=== PATIENT | female | born 1985 | race Caucasian/White ===

== ENCOUNTER 2017-03-16 12:32 | Emergency (ER) | payer OTHER ==
[2017-03-16 12:54] VITALS: BP 120/70; RESP 18; TEMP 98.8
--- NOTE | 2017-03-16 13:14 | ED ---
Female Urogenital HPI - General Chief complaint: Urogenital Stated complaint: Pelvic Pain Time Seen by Provider: 03/16/17 13:10 Source: patient, RN notes reviewed Mode of arrival: ambulatory - History of Present Illness Initial comments: 31-year-old female presents to the emergency department with a chief complaint of vaginal drainage. Patient states he is having a clear-like vaginal discharge. Patient does admit to a history of bacterial vaginosis. Patient states that this seems much like this. Patient denies any concern first 2 days. Patient has had some burning with urination as well. Patient states that she was concerned due to the complaints that she thought that they should be evaluated. Patient denies any recent fever, chills, shortness of breath, chest pain, back pain, abdominal pain, nausea vomiting, numbness or tingling, dysuria or hematuria, constipation or diarrhea, headaches or visual changes, or any other current symptoms. Last Menstrual Period: 03/03/17 - Related Data Previous Rx's Medication Instructions Recorded metroNIDAZOLE 0.75% VAGINAL 1 applic VAGINAL HS 7 Days 03/16/17 [Metrogel Vaginal] Allergies Allergy/AdvReac Type Severity Reaction Status Date / Time No Known Allergies Allergy Verified 03/16/17 13:41 Review of Systems ROS Statement: Those systems with pertinent positive or pertinent negative responses have been documented in the HPI. ROS Other: All systems not noted in ROS Statement are negative. Past Medical History Past Medical History: No Reported History History of Any Multi-Drug Resistant Organisms: None Reported Past Surgical History: Cholecystectomy Past Anesthesia/Blood Transfusion Reactions: No Reported Reaction Additional Past Anesthesia/Blood Transfusion Reaction / Comment(s): RECIEVED 2 UNITS OF PRBC, POST 03/5015, NO REACTION Past Psychological History: Anxiety, Depression Additional Psychological History / Comment(s): STATES SEEING A COUNSELOR, AWAITING TO SEE DR TO GET PRESCRIPTIONS Smoking Status: Current every day smoker Past Alcohol Use History: Occasional Past Drug Use History: None Reported - Past Family History Father Family Medical History: No Reported History Mother Family Medical History: No Reported History General Exam General appearance: alert, in no apparent distress Head exam: Present: atraumatic, normocephalic, normal inspection ENT exam: Present: normal exam, mucous membranes moist Neck exam: Present: normal inspection. Absent: tenderness, meningismus, lymphadenopathy Respiratory exam: Present: normal lung sounds bilaterally. Absent: respiratory distress, wheezes, rales, rhonchi, stridor Cardiovascular Exam: Present: regular rate, normal rhythm, normal heart sounds. Absent: systolic murmur, diastolic murmur, rubs, gallop, clicks External exam: Present: normal external exam Speculum exam: Present: vaginal discharge (White, thin). Absent: erythema, cervical discharge, vaginal bleeding, foreign body, tissue, laceration Neurological exam: Present: alert, oriented X3 Psychiatric exam: Present: normal affect, normal mood Skin exam: Present: warm, dry, intact, normal color. Absent: rash Course Vital Signs 03/16/17 12:50 Temperature 98.8 F Pulse Rate 95 Respiratory 18 Rate Blood Pressure 120/70 O2 Sat by Pulse 98 Oximetry Medical Decision Making - Medical Decision Making 31-year-old female presents emergency room chief complaint of vaginal discharge. Patient's exam is consistent with bacterial vaginosis. At this time we will treat for this. We did test that he has had a follow-up on these results. We discussed return parameters all patient's questions. They stated he understood and management given the plan. They will be discharged home. - Lab Data Lab Results 03/16/17 03/16/17 03/16/17 Range/Units 13:20 13:20 13:50 Urine Color Yellow Urine Appearance Cloudy H (Clear) Urine pH 7.0 (5.0-8.0) Ur Specific [place] 1.018 (1.001-1.035) Urine Protein Trace H (Negative) Urine Glucose (UA) Negative (Negative) Urine Ketones Negative (Negative) Urine Blood Negative (Negative) Urine Nitrite Negative (Negative) Urine Bilirubin Negative (Negative) Urine Urobilinogen 3.0 (<2.0) mg/dL Ur Leukocyte Esterase Negative (Negative) Urine RBC <1 (0-5) /hpf Urine WBC 1 (0-5) /hpf Ur Squamous Epith Cells 13 H (0-4) /hpf Urine Mucus Rare H (None) /hpf Urine HCG, Qual Not Detected (Not Detectd) Trichomonas Ag (Rapid) Negative (Negative) Disposition Clinical Impression: Bacterial vaginosis Disposition: HOME SELF-CARE Condition: Stable Instructions: Bacterial Vaginosis (ED) Additional Instructions: Please use medication as discussed. Please follow up with family doctor if symptoms have not improved over the next two days. Please return to the emergency room if your symptoms increase or worsen or for any other concerns. Prescriptions: metroNIDAZOLE 0.75% VAGINAL [Metrogel Vaginal] 1 applic VAGINAL HS 7 Days Referrals: Chandler Wells DO [Primary Care Provider] - 1-2 days Time of Disposition: 14:18
[2017-03-16 13:55] LABS: Appearance,Urine Cloudy (Clear); Bilirubin,Urine Negative (Negative); Glucose,Urine (UA) Negative (Negative); Ketones,Urine Negative (Negative); Leukocyte Esterase,Urine Negative (Negative); Mucus,Urine Rare /hpf; Nitrite,Urine Negative (Negative); Particle Count 2859; Protein,Urine Trace (Negative); RBC,Urine <1 /hpf (0-5); Specific Gravity,Urine 1.018 (1.001-1.035); Squamous Epithelial Cell,Urine 13 /hpf (0-4); UA Billing (MACRO vs. MICRO) MICRO; WBC,Urine 1 /hpf (0-5)
[2017-03-16 14:34] VITALS: PULSE 65
[2017-03-17 10:40] LABS: Chlamydia/GC Source Vaginal
== END 2017-03-16 14:34 | disposition home or self-care (01) ==
LOC: EC 12:32
DX: N76.0 Acute vaginitis (principal); F17.200 Nicotine dependence, unspecified, uncomplicated
CPT/HCPCS: 81001; 81025; 87070; 87086; 87205; 87491; 87591; 87808; 99284

== ENCOUNTER 2017-09-10 14:37 | Emergency (ER) | payer OTHER ==
[2017-09-10 14:40] VITALS: BP 118/69; PULSE 90; RESP 20; TEMP 98.3
[2017-09-10] MEDS ORDERED: HYDROcodone/APAP 5-325MG 1 EACH TAB PO STA (15:17)
[2017-09-10] MEDS ORDERED: ONDANSETRON ODT 4 MG TAB PO STA (15:17)
--- NOTE | 2017-09-10 15:20 | ED ---
General Adult HPI - General Chief complaint: Abdominal Pain Stated complaint: Pelvic Pain Time Seen by Provider: 09/10/17 15:03 Source: patient, RN notes reviewed, old records reviewed Mode of arrival: ambulatory Limitations: no limitations - History of Present Illness Initial comments: This is a 32-year-old female to the ER today for evaluation of pelvic pain. Patient severe left-sided pelvic pain. Pain. Patient has history of 7 pregnancies 5 positive outbursts and a tubal ligation. Patient has nausea started this morning has not been feeling well for about 2 days and now complaining of just severe left-sided abdominal pain left-sided pelvic pain. No problems with bowel or bladder. Had a history of cholecystectomy, no other abdominal surgeries. No fevers. - Related Data Home Medications Medication Instructions Recorded Confirmed Acetaminophen Tab [Tylenol Tab] 1,000 mg PO Q6HR PRN 09/10/17 09/10/17 Allergies Allergy/AdvReac Type Severity Reaction Status Date / Time No Known Allergies Allergy Verified 09/10/17 15:09 Review of Systems ROS Statement: Those systems with pertinent positive or pertinent negative responses have been documented in the HPI. ROS Other: All systems not noted in ROS Statement are negative. Past Medical History Past Medical History: No Reported History History of Any Multi-Drug Resistant Organisms: None Reported Past Surgical History: Cholecystectomy, Tubal Ligation Past Anesthesia/Blood Transfusion Reactions: No Reported Reaction Additional Past Anesthesia/Blood Transfusion Reaction / Comment(s): RECIEVED 2 UNITS OF PRBC, POST 03/5015, NO REACTION Past Psychological History: Anxiety, Depression Smoking Status: Current every day smoker Past Alcohol Use History: Occasional Past Drug Use History: None Reported - Past Family History Father Family Medical History: No Reported History Mother Family Medical History: No Reported History General Exam Limitations: no limitations General appearance: alert, in no apparent distress Head exam: Present: atraumatic, normocephalic, normal inspection Eye exam: Present: normal appearance, PERRL, EOMI. Absent: scleral icterus, conjunctival injection, periorbital swelling ENT exam: Present: normal exam, mucous membranes moist Neck exam: Present: normal inspection. Absent: tenderness, meningismus, lymphadenopathy Respiratory exam: Present: normal lung sounds bilaterally. Absent: respiratory distress, wheezes, rales, rhonchi, stridor Cardiovascular Exam: Present: regular rate, normal rhythm, normal heart sounds. Absent: systolic murmur, diastolic murmur, rubs, gallop, clicks GI/Abdominal exam: Present: soft, normal bowel sounds. Absent: distended, tenderness, guarding, rebound, rigid Extremities exam: Present: normal inspection, full ROM, normal capillary refill. Absent: tenderness, pedal edema, joint swelling, calf tenderness Back exam: Present: normal inspection Neurological exam: Present: alert, oriented X3, CN II-XII intact Psychiatric exam: Present: normal affect, normal mood Skin exam: Present: warm, dry, intact, normal color. Absent: rash Course Vital Signs 09/10/17 14:39 Temperature 98.3 F Pulse Rate 90 Respiratory 20 Rate Blood Pressure 118/69 O2 Sat by Pulse 99 Oximetry - Reevaluation(s) Reevaluation #1: 09/10/17 16:47 pain is controlled Medical Decision Making - Medical Decision Making 32 female to ER for evaluation patient is a fairly for left pelvic pain. Positive ovarian cyst. Patient will be discharged home with pain control urine is negative. No evidence of torsion, patient is status post tubal ligation - Lab Data Lab Results 09/10/17 09/10/17 Range/Units 15:20 15:20 Urine Color Yellow Urine Appearance Clear (Clear) Urine pH 6.0 (5.0-8.0) Ur Specific [place] 1.009 (1.001-1.035) Urine Protein Negative (Negative) Urine Glucose (UA) Negative (Negative) Urine Ketones Negative (Negative) Urine Blood Trace H (Negative) Urine Nitrite Negative (Negative) Urine Bilirubin Negative (Negative) Urine Urobilinogen <2.0 (<2.0) mg/dL Ur Leukocyte Esterase Negative (Negative) Urine RBC <1 (0-5) /hpf Urine WBC 1 (0-5) /hpf Ur Squamous Epith Cells 2 (0-4) /hpf Urine Bacteria Rare H (None) /hpf Urine Mucus Rare H (None) /hpf Urine HCG, Qual Not Detected (Not Detectd) - Radiology Data Radiology results: report reviewed ([employer] of PELVIS POSITIVE FOR OVARIAN CYSTS), image reviewed Disposition Clinical Impression: Abdominal pain, Left ovarian cyst Disposition: HOME SELF-CARE Condition: Good Instructions: Ovarian Cyst (ED), Ruptured Ovarian Cyst (ED) Referrals: Chandler Wells DO [Primary Care Provider] - 1-2 days
[2017-09-10 15:45] LABS: Appearance,Urine Clear (Clear); Bacteria,Urine Rare /hpf; Bilirubin,Urine Negative (Negative); Glucose,Urine (UA) Negative (Negative); Ketones,Urine Negative (Negative); Leukocyte Esterase,Urine Negative (Negative); Mucus,Urine Rare /hpf; Nitrite,Urine Negative (Negative); Particle Count 1087; Protein,Urine Negative (Negative); RBC,Urine <1 /hpf (0-5); Specific Gravity,Urine 1.009 (1.001-1.035); Squamous Epithelial Cell,Urine 2 /hpf (0-4); UA Billing (MACRO vs. MICRO) MICRO; Urobilinogen,Urine <2.0 mg/dL (<2.0); WBC,Urine 1 /hpf (0-5)
--- NOTE | 2017-09-10 16:33 | US ---
EXAMINATION TYPE: US transvaginal DATE OF EXAM: 09/10/2017 COMPARISON: US 2012 CLINICAL HISTORY: Pain. left pelvic pain x 1 day, history of ovarian cysts, irregular cycles, history of tubal ligation, 7, para 5, miscarriage, 1 TECHNIQUE: Transvaginal (TV) ER exam Date of LMP: Last month: patient unsure of exact date EXAM MEASUREMENTS: Uterus: 8.7 x 4.0 x 4.2 cm Endometrial Stripe: 0.7 cm Right Ovary: 3.6 x 2.1 x 1.9 cm Left Ovary: 4.4 x 3.1 x 4.1 cm 1. Uterus: anteverted, somewhat heterogeneous, cervix: 1.6 x 1.6 x 1.5cm cyst with internal echoes c ompatible with nabothian cyst 2. Endometrium: appears wnl 3. Right Ovary: wnl 4. Left Ovary: 2.4 x 2.5 x 3.5cm cyst with internal echoes and 1.9cm solid portion with peripheral v ascularity. Spectral, color and waveform doppler imaging shows good arterial and venous flow within the left ov ashley and good arterial flow within the right ovary, unable to obtain venous flow within the right ovar y. 5. Bilateral Adnexa: wnl 6. Posterior cul-de-sac: wnl IMPRESSION: Venous waveform was not obtained within the right ovary, consider follow-up if ovarian to rsion is suspected, findings could be technical. Correlate clinically. There is a left ovarian cyst. Sizable nabothian cyst suspected.
== END 2017-09-10 16:56 | disposition home or self-care (01) ==
LOC: EC 14:37
DX: N83.202 Unspecified ovarian cyst, left side (principal); F17.200 Nicotine dependence, unspecified, uncomplicated; Z90.49 Acquired absence of other specified parts of digestive tract; Z98.51 Tubal ligation status
CPT/HCPCS: 76830; 81001; 81025; 87086; 93975; 99284

== ENCOUNTER → 2018-06-08 | Outpatient (CLI) | payer OTHER ==
--- NOTE | 2018-06-08 16:36 | US ---
EXAMINATION TYPE: US pelvic complete DATE OF EXAM: 06/08/2018 COMPARISON: US 2017 CLINICAL HISTORY: R10.2 pelvic pain N81.4 uterine prolapse; patient stated feels cervical fullness; TECHNIQUE: Transabdominal (TA). Date of LMP: 06/02/2018 EXAM MEASUREMENTS: Uterus: 10.4 x 5.2 x 3.7 cm Endometrial Stripe: 0.8 cm Right Ovary: 3.8 x 1.9 x 2.3 cm Left Ovary: 3.0 x 3.2 x 1.6 cm 1. Uterus: Anteverted; couple of large Nabothian cysts with largest = 1.8 x 1.5 x 1.7cm 2. Endometrium: thicker for day 7LMP as normal is ( 4 to 6mm) 3. Right Ovary: multifollicular with exophytic cyst seen as largest = 2.1 x 1.3 x 1.4cm 4. Left Ovary: small follicles Spectral, color and waveform doppler imaging shows good arterial and venous flow within the ovaries ; there is no evidence for ovarian torsion. 5. Bilateral Adnexa: wnl 6. Posterior cul-de-sac: wnl IMPRESSION: 1. Ovarian follicles. 2. Nabothian cysts.
== END | disposition home or self-care (01) ==
LOC: RADUSWWP 13:05
PROVIDERS: ATTEND Family Medicine
DX: N88.8 Other specified noninflammatory disorders of cervix uteri (principal)
CPT/HCPCS: 76856

== ENCOUNTER 2019-03-18 20:56 | Emergency (ER) | payer OTHER ==
[2019-03-18 21:06] VITALS: RESP 20
--- NOTE | 2019-03-18 21:37 | ED ---
Abdominal Pain HPI - General Chief Complaint: Abdominal Pain Stated Complaint: Abd pain Time Seen by Provider: 03/18/19 21:19 Source: patient Mode of arrival: ambulatory Limitations: no limitations - History of Present Illness Initial Comments: This patient is a 33-year-old woman, with history of previous hysterectomy and vaginal sling procedure approximately 7 months ago, who presents to be evaluated for pelvic and right lower quadrants issues that are been going on for number weeks though she states it is been more consistent for the past one week. She has been seen at [facility] a couple of times over the past few weeks where they have tested for urinary tract infection, STI, and bacteria vaginosis. The patient states that she did take a course of treatment for bacterial vaginosis. She continues to have dysuria and burning vaginal pain. Patient also relates that she thought she may have felt a stitch protruding through the vaginal m ucosa. She describes the pain as being a burning. She notes that it feels as if she has to force her urine when she does attempt to urinate. Patient also states that she has not been able to have intercourse due to vaginal burning. She currently is not having any discharge that time she has had some whitish discharge. No new sexual contacts. No fever or chills. No change in bowel movements. MD Complaint: abdominal pain Onset/Timin -: week(s) Location: RLQ Radiation: none Migration to: no migration Severity: moderate Quality: sharp Consistency: intermittent Improves With: nothing Worsens With: other (Urination) Associated Symptoms: dysuria - Related Data Home Medications Medication Instructions Recorded Confirmed Ibuprofen [Motrin] 600 mg PO Q8HR PRN 03/18/19 03/18/19 Allergies Allergy/AdvReac Type Severity Reaction Status Date / Time Iodinated Contrast- Oral and AdvReac PASSED OUT Verified 03/18/19 21:21 IV Dye Review of Systems ROS Statement: Those systems with pertinent positive or pertinent negative responses have been documented in the HPI. ROS Other: All systems not noted in ROS Statement are negative. Past Medical History Past Medical History: No Reported History History of Any Multi-Drug Resistant Organisms: None Reported Past Surgical History: Cholecystectomy, Hysterectomy, Tubal Ligation Additional Past Surgical History / Comment(s): bladder sling Past Anesthesia/Blood Transfusion Reactions: No Reported Reaction Additional Past Anesthesia/Blood Transfusion Reaction / Comment(s): RECIEVED 2 UNITS OF PRBC, POST 03/5015, NO REACTION Past Psychological History: Anxiety, Depression Smoking Status: Current every day smoker Past Alcohol Use History: Rare Past Drug Use History: None Reported - Past Family History Father Family Medical History: No Reported History Mother Family Medical History: No Reported History General Exam Limitations: no limitations General appearance: alert, in no apparent distress Head exam: Present: atraumatic, normocephalic Eye exam: Present: normal appearance ENT exam: Present: normal oropharynx Respiratory exam: Present: normal lung sounds bilaterally. Absent: respiratory distress, wheezes, rales, rhonchi, stridor Cardiovascular Exam: Present: regular rate, normal rhythm, normal heart sounds. Absent: systolic murmur, diastolic murmur, rubs, gallop GI/Abdominal exam: Present: soft. Absent: distended, tenderness, guarding, rebound External exam: Present: normal external exam Speculum exam: Present: normal speculum exam. Absent: erythema, vaginal discharge By manual exam: Present: other (The patient's vaginal exam reveals some tenderness when palpated over the area of the vaginal sling procedure. I do not feel any protruding suture material. There is no erythema or warmth suggestive of infection.) Extremities exam: Present: normal inspection, normal capillary refill. Absent: pedal edema Back exam: Present: normal inspection. Absent: CVA tenderness (R), CVA te nderness (L) Neurological exam: Present: alert Skin exam: Present: warm, dry, intact, normal color. Absent: rash Course Vital Signs 03/18/19 21:00 Temperature 98.1 F Pulse Rate 103 H Respiratory 20 Rate Blood Pressure 122/69 O2 Sat by Pulse 98 Oximetry Medical Decision Making - Medical Decision Making Patient is a 33-year-old woman with some pelvic pain issues. On the exam there is deftly tenderness at the site of the patient's vaginal sling procedure. There is nothing on the exam suggestive of an acute infection. Will suggest that the patient follows with her public policy manager to see if there is an issue related to the procedure or if this may be an issue related to development of adhesion/scar tissue.. - Lab Data Result diagrams: 03/18/19 21:32 03/18/19 21:32 Lab Results 03/18/19 03/18/19 03/18/19 Range/Units 21:32 21:32 21:41 WBC 10.3 (3.8-10.6) k/uL RBC 4.94 (3.80-5.40) m/uL Hgb 14.1 (11.4-16.0) gm/dL Hct 42.2 (34.0-46.0) % MCV 85.4 (80.0-100.0) fL MCH 28.5 (25.0-35.0) pg MCHC 33.4 (31.0-37.0) g/dL RDW 13.2 (11.5-15.5) % Plt Count 304 (150-450) k/uL Neutrophils % 66 % Lymphocytes % 26 % Monocytes % 4 % Eosinophils % 3 % Basophils % 1 % Neutrophils # 6.8 (1.3-7.7) k/uL Lymphocytes # 2.6 (1.0-4.8) k/uL Monocytes # 0.4 (0-1.0) k/uL Eosinophils # 0.4 (0-0.7) k/uL Basophils # 0.1 (0-0.2) k/uL Sodium 139 (137-145) mmol/L Potassium 4.2 (3.5-5.1) mmol/L Chloride 108 H (98-107) mmol/L Carbon Dioxide 21 L (22-30) mmol/L Anion Gap 10 mmol/L BUN 9 (7-17) mg/dL Creatinine 0.68 (0.52-1.04) mg/dL Est GFR (CKD-EPI)AfAm >90 (>60 ml/min/1.73 sqM) Est GFR (CKD-EPI)NonAf >90 (>60 ml/min/1.73 sqM) Glucose 94 (74-99) mg/dL Calcium 10.3 H (8.4-10.2) mg/dL Total Bilirubin 0.4 (0.2-1.3) mg/dL AST 27 (14-36) U/L ALT 23 (9-52) U/L Alkaline Phosphatase 105 (38-126) U/L Total Protein 8.3 H (6.3-8.2) g/dL Albumin 4.9 (3.5-5.0) g/dL Amylase 76 (30-110) U/L Lipase 69 (23-300) U/L Urine Color Urine Appearance (Clear) Urine pH (5.0-8.0) Ur Specific [place] (1.001-1.035) Urine Protein (Negative) Urine Glucose (UA) (Negative) Urine Ketones (Negative) Urine Blood (Negative) Urine Nitrite (Negative) Urine Bilirubin (Negative) Urine Urobilinogen (<2.0) mg/dL Ur Leukocyte Esterase (Negative) Urine RBC (0-5) /hpf Urine WBC (0-5) /hpf Ur Squamous Epith Cells (0-4) /hpf Urine Bacteria (None) /hpf Urine Mucus (None) /hpf Urine HCG, Qual Not Detected (Not Detectd) 03/18/19 Range/Units 21:41 WBC (3.8-10.6) k/uL RBC (3.80-5.40) m/uL Hgb (11.4-16.0) gm/dL Hct (34.0-46.0) % MCV (80.0-100.0) fL MCH (25.0-35.0) pg MCHC (31.0-37.0) g/dL RDW (11.5-15.5) % Plt Count (150-450) k/uL Neutrophils % % Lymphocytes % % Monocytes % % Eosinophils % % Basophils % % Neutrophils # (1.3-7.7) k/uL Lymphocytes # (1.0-4.8) k/uL Monocytes # (0-1.0) k/uL Eosinophils # (0-0.7) k/uL Basophils # (0-0.2) k/uL Sodium (137-145) mmol/L Potassium (3.5-5.1) mmol/L Chloride (98-107) mmol/L Carbon Dioxide (22-30) mmol/L Anion Gap mmol/L BUN (7-17) mg/dL Creatinine (0.52-1.04) mg/dL Est GFR (CKD-EPI)AfAm (>60 ml/min/1.73 sqM) Est GFR (CKD-EPI)NonAf (>60 ml/min/1.73 sqM) Glucose (74-99) mg/dL Calcium (8.4-10.2) mg/dL Total Bilirubin (0.2-1.3) mg/dL AST (14-36) U/L ALT (9-52) U/L Alkaline Phosphatase (38-126) U/L Total Protein (6.3-8.2) g/dL Albumin (3.5-5.0) g/dL Amylase (30-110) U/L Lipase (23-300) U/L Urine Color Yellow Urine Appearance Clear (Clear) Urine pH 5.5 (5.0-8.0) Ur Specific [place] 1.014 (1.001-1.035) Urine Protein Negative (Negative) Urine Glucose (UA) Negative (Negative) Urine Ketones Negative (Negative) Urine Blood Negative (Negative) Urine Nitrite Negative (Negative) Urine Bilirubin Negative (Negative) Urine Urobilinogen <2.0 (<2.0) mg/dL Ur Leukocyte Esterase Small H (Negative) Urine RBC 1 (0-5) /hpf Urine WBC <1 (0-5) /hpf Ur Squamous Epith Cells 3 (0-4) /hpf Urine Bacteria Rare H (None) /hpf Urine Mucus Rare H (None) /hpf Urine HCG, Qual (Not Detectd) Disposition Clinical Impression: Pelvic pain Disposition: HOME SELF-CARE Condition: Good Instructions (If sedation given, give patient instructions): Pelvic Pain in Women (ED) Additional Instructions: As we discussed, follow with your public policy manager to see if her symptoms may be related to adhesions/scar tissue formation. Is patient prescribed a controlled substance at d/c from ED?: No Referrals: Chandler Wells DO [Primary Care Provider] - 1-2 days
[2019-03-18 21:42] LABS: Basophils # (A) 0.1 k/uL (0-0.2); Basophils % (A) 1 %; Eosinophils # (A) 0.4 k/uL (0-0.7); Eosinophils % (A) 3 %; HCT 42.2 % (34.0-46.0); HGB 14.1 gm/dL (11.4-16.0); Lymphocytes # (A) 2.6 k/uL (1.0-4.8); Lymphocytes % (A) 26 %; MCH 28.5 pg (25.0-35.0); MCHC 33.4 g/dL (31.0-37.0); MCV 85.4 fL (80.0-100.0); Mean Platelet Volume 7.1; Monocytes # (A) 0.4 k/uL (0-1.0); Monocytes % (A) 4 %; Neutrophils # (A) 6.8 k/uL (1.3-7.7); Neutrophils % (A) 66 %; Platelet Count 304 k/uL (150-450); RBC 4.94 m/uL (3.80-5.40); RDW 13.2 % (11.5-15.5); WBC 10.3 k/uL (3.8-10.6)
[2019-03-18 21:57] LABS: ALT 23 U/L (9-52); AST 27 U/L (14-36); Albumin 4.9 g/dL (3.5-5.0); Alkaline Phosphatase 105 U/L (38-126); Amylase 76 U/L (30-110); Anion Gap 10 mmol/L; Blood Urea Nitrogen 9 mg/dL (7-17); Calcium 10.3 mg/dL (8.4-10.2); Carbon Dioxide 21 mmol/L (22-30); Chloride 108 mmol/L (98-107); Glucose 94 mg/dL (74-99); Lipase 69 U/L (23-300); Potassium 4.2 mmol/L (3.5-5.1); Sodium 139 mmol/L (137-145); Total Bilirubin 0.4 mg/dL (0.2-1.3); Total Protein 8.3 g/dL (6.3-8.2)
[2019-03-18 21:58] LABS: Appearance,Urine Clear (Clear); Bacteria,Urine Rare /hpf; Bilirubin,Urine Negative (Negative); Blood,Urine Negative (Negative); Color,Urine Yellow; Glucose,Urine (UA) Negative (Negative); Ketones,Urine Negative (Negative); Leukocyte Esterase,Urine Small (Negative); Mucus,Urine Rare /hpf; Nitrite,Urine Negative (Negative); PH, Urine 5.5 (5.0-8.0); Protein,Urine Negative (Negative); RBC,Urine 1 /hpf (0-5); Specific Gravity,Urine 1.014 (1.001-1.035); Squamous Epithelial Cell,Urine 3 /hpf (0-4); Urobilinogen,Urine <2.0 mg/dL (<2.0); WBC,Urine <1 /hpf (0-5)
[2019-03-18] MEDS ORDERED: LIDOCAINE VISCOUS 2% 15 ML CUP MUCOUS MEM STA (22:49)
[2019-03-18 23:50] VITALS: BP 107/89; PULSE 78; TEMP 97.8
== END 2019-03-18 23:50 | disposition home or self-care (01) ==
LOC: EC 20:56
DX: R10.2 Pelvic and perineal pain (principal); R30.0 Dysuria; F17.200 Nicotine dependence, unspecified, uncomplicated; Z91.041 Radiographic dye allergy status; Z87.42 Personal history of other diseases of the female genital tract; Z97.8 Presence of other specified devices; Z98.51 Tubal ligation status; Z90.49 Acquired absence of other specified parts of digestive tract; Z90.710 Acquired absence of both cervix and uterus
CPT/HCPCS: 36415; 80053; 81001; 81025; 82150; 83690; 85025; 99284

== ENCOUNTER → 2019-08-18 | Outpatient (CLI) | payer OTHER ==
--- NOTE | 2019-08-18 11:21 | XR ---
EXAMINATION TYPE: XR chest 2V DATE OF EXAM: 08/18/2019 COMPARISON: 04/26/2012 HISTORY: Left-sided chest pain TECHNIQUE: Frontal and lateral views of the chest are obtained. FINDINGS: There is no focal air space opacity, pleural effusion, or pneumothorax seen. The cardiac silhouette size is within normal limits. The osseous structures are intact. IMPRESSION: No acute cardiopulmonary process.
== END | disposition home or self-care (01) ==
LOC: RADXRMAIN 09:30
PROVIDERS: ATTEND Family Medicine
DX: R07.9 Chest pain, unspecified (principal)
CPT/HCPCS: 71046

== ENCOUNTER → 2020-03-29 | Outpatient (CLI) | payer OTHER | END | disposition home or self-care (01) | LOC: LABWHC1 11:15 | PROVIDERS: ATTEND Family Medicine | DX: Z11.59 Encounter for screening for other viral diseases (principal) ==

== ENCOUNTER 2020-04-18 20:20 | Emergency (ER) | payer OTHER ==
[2020-04-18] MEDS ORDERED: SODIUM CHLORIDE 0.9% 1,000 ML IV STA (20:55)
[2020-04-18] MEDS ORDERED: KETOROLAC 30 MG/ML 1 ML VIAL IVP STA (20:55)
--- NOTE | 2020-04-18 20:59 | ED ---
Headache HPI - General Chief Complaint: Headache Stated Complaint: Headache, Dizziness Time Seen by Provider: 04/18/20 20:40 Mode of arrival: ambulatory Limitations: no limitations - History of Present Illness Initial Comments: Patient is a 34-year-old female presenting to the emergency Department with complaints of a headache as well as intermittent dizziness for the past week. Patient states she went to [facility] 3 days ago for similar complaints. They diagnosed her with vertigo. Patient presents today with continued head pressure as well as continued intermittent dizziness. She states she does not have a history of migraines. She describes her headache as pressure in the front of her head that comes and goes. She states currently she rates it a 5/10. She denies any nausea or vomiting. She denies any falls or trauma. She states the dizzy spells last for only a few seconds and are related to a change in position. She denies any fever, chills, abdominal pain, chest pain, shortness of breath. HEENT she has no further complaints at this time. Upon arrival to the ER, vital signs are stable. - Related Data Home Medications Medication Instructions Recorded Confirmed Ibuprofen [Motrin] 600 mg PO Q8HR PRN 03/18/19 04/18/20 Allergies Allergy/AdvReac Type Severity Reaction Status Date / Time Iodinated Contrast Media AdvReac PASSED OUT Verified 04/18/20 20:30 [Iodinated Contrast- Oral and IV Dye] Review of Systems ROS Statement: Those systems with pertinent positive or pertinent negative responses have been documented in the HPI. ROS Other: All systems not noted in ROS Statement are negative. Past Medical History Past Medical History: No Reported History History of Any Multi-Drug Resistant Organisms: None Reported Past Surgical History: Cholecystectomy, Hysterectomy, Tubal Ligation Additional Past Surgical History / Comment(s): bladder sling Past Anesthesia/Blood Transfusion Reactions: No Reported Reaction Additional Past Anesthesia/Blood Transfusion Reaction / Comment(s): RECIEVED 2 UNITS OF PRBC, POST 03/5015, NO REACTION Past Psychological History: Anxiety, Depression Smoking Status: Current every day smoker Past Alcohol Use History: Rare Past Drug Use History: None Reported - Past Family History Father Family Medical History: No Reported History Mother Family Medical History: No Reported History General Exam - General Exam Comments Initial Comments: GENERAL: Well-appearing, well-nourished and in no acute distress. HEAD: Atraumatic, normocephalic. EYES: Pupils equal round and reactive to light, extraocular movements intact, sclera anicteric, conjunctiva are normal. ENT: TMs normal, nares patent, oropharynx clear without exudates. Moist mucous membranes. NECK: Normal range of motion, supple without lymphadenopathy or JVD. LUNGS: Breath sounds clear to auscultation bilaterally and equal. No wheezes rales or rhonchi. HEART: Regular rate and rhythm without murmurs, rubs or gallops. ABDOMEN: Soft, nontender, normoactive bowel sounds. No guarding, no rebound. No masses appreciated. : Deferred EXTREMITIES: Normal range of motion, no pitting or edema. No clubbing or cyanosis. Strength is 5 out of 5 upper and lower extremities bilaterally. Sensation is equal and bilateral. NEUROLOGICAL: Cranial nerves II through XII grossly intact. Normal speech, normal gait. PSYCH: Normal mood, normal affect. SKIN: Warm, Dry, normal turgor, no rashes or lesions noted. Limitations: no limitations Course Vital Signs 04/18/20 20:26 Temperature 98.2 F Pulse Rate 88 Respiratory 18 Rate Blood Pressure 124/79 O2 Sat by Pulse 100 Oximetry Medical Decision Making - Medical Decision Making Patient is a 34-year-old female here for a headache as well as intermittent dizziness. She was evaluated at the [facility] 3 days ago for same complaint. There was no imaging done at that time. Patient's exam is unremarkable. There is no trauma or falls. I did do a CT of her head which is unremarkable, no acute process. Patient was given fluids and Toradol the ER. She states her headache is better she is just having some pressure. I recommended trial of Benadryl tonight when she gets home as well as follow-up with an ENT. I discussed with patient this could be from mild vertigo and or sinus headache. Patient states she already has an appointment with an ENT later this month. I also recommended continuing with ibuprofen and/or Tylenol for headaches. She is in agreement with this plan of care. Return parameters were discussed the patient she verbalized understanding. Disposition Clinical Impression: Headache Disposition: HOME SELF-CARE Condition: Stable Instructions (If sedation given, give patient instructions): Acute Headache (ED) Additional Instructions: Please return to the Emergency Department if symptoms worsen or any other concerns. Continue with ibuprofen and/or Tylenol for headaches. Trial Benadryl at night as well as Claritin during the day. Follow up with ENT as discussed. Is patient prescribed a controlled substance at d/c from ED?: No Referrals: Chandler Wells DO [Primary Care Provider] - 1-2 days
--- NOTE | 2020-04-18 21:50 | CT ---
EXAMINATION TYPE: CT brain wo con DATE OF EXAM: 04/18/2020 COMPARISON: None. HISTORY: Headache and pressure. Dizziness. CT DLP: 1055.4 mGycm. Automated Exposure Control for Dose Reduction was Utilized. TECHNIQUE: CT scan of the head is performed without contrast. FINDINGS: There is no acute intracranial hemorrhage, mass effect, or midline shift identified. The ventricles and sulci are within normal limits in size. Cerda-white matter differentiation is maintai ananda. The globes are intact and the visualized sinuses are clear. IMPRESSION: Unremarkable study.
[2020-04-18 22:28] VITALS: BP 103/68; PULSE 70; RESP 17; TEMP 97.9
== END 2020-04-18 22:25 | disposition home or self-care (01) ==
LOC: EC 20:20
DX: R51 Headache (principal); R42 Dizziness and giddiness; F17.200 Nicotine dependence, unspecified, uncomplicated; Z91.041 Radiographic dye allergy status
CPT/HCPCS: 70450; 99284; 96374; 96361; J1885

== ENCOUNTER → 2020-11-12 | Outpatient (CLI) | payer OTHER ==
--- NOTE | 2020-11-12 16:17 | XR ---
EXAMINATION TYPE: XR chest 2V, XR ribs 4 views bilateral DATE OF EXAM: 11/12/2020 COMPARISON: None HISTORY: 35-year-old female with rib pain after fall 2 weeks ago. W19.XXXA M54.15 FINDINGS: Chest: The cardiomediastinal silhouette, aorta, and pulmonary vasculature are within normal limits. Lungs an d pleural spaces are clear. RIBS: Cholecystectomy clips. No displaced rib fracture on either side. IMPRESSION: No acute cardiopulmonary process. No displaced rib fracture on either side.
--- NOTE | 2020-11-12 16:19 | XR ---
EXAMINATION TYPE: XR lumbar spine 2 or 3V DATE OF EXAM: 11/12/2020 Comparison: None Clinical History: 35-year-old female W19.XXXA, M54.15 Findings: Cholecystectomy clips. 5 lumbar type vertebral bodies. 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 Vertebral body heights are preserved and alignment is maintained. Mild facet arthropathy low er lumbar spine. 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 Mild facet arthropathy lower lumbar spine. No vertebral compression collapse or malalignment.
== END | disposition home or self-care (01) ==
LOC: RADXRMAIN 14:59
PROVIDERS: ATTEND Nurse Practitioner Family
DX: M47.26 Other spondylosis with radiculopathy, lumbar region (principal); Q76.49 Other congenital malformations of spine, not associated with scoliosis; R06.02 Shortness of breath; R07.81 Pleurodynia
CPT/HCPCS: 71046; 71110; 72100

== ENCOUNTER → 2022-11-04 | Outpatient (CLI) | payer OTHER ==
--- NOTE | 2022-11-04 13:54 | XR ---
EXAMINATION TYPE: XR chest 2V DATE OF EXAM: 11/04/2022 COMPARISON: Prior chest x-ray November 12, 2020 HISTORY: Shortness of breath and cough. TECHNIQUE: Frontal and lateral views of the chest are obtained. FINDINGS: There is no suspicious new focal air space opacity, pleural effusion, or pneumothorax seen . The cardiac silhouette size is stable and within normal limits. The osseous structures are intac t. Cholecystectomy clips noted on current study. IMPRESSION: No acute pulmonary process.
== END | disposition home or self-care (01) ==
LOC: RADXRMAIN 13:26
PROVIDERS: ATTEND Nurse Practitioner Family
DX: R05.9 Cough, unspecified (principal); R06.02 Shortness of breath
CPT/HCPCS: 71046

== ENCOUNTER → 2023-12-17 | Outpatient (CLI) | payer OTHER ==
--- NOTE | 2023-12-17 14:33 | XR ---
EXAMINATION TYPE: XR wrist complete BILATERAL DATE OF EXAM: 12/17/2023 COMPARISON: NONE HISTORY: 38-year-old female M54.10 RADICULOPATHY, SITE UNSPECIFIED TECHNIQUE: 4 views each side FINDINGS: The radiocarpal and distal radioulnar joints as well as the metacarpal compartments appear intact on both sides. No acute fracture, subluxation, dislocation. No periostitis or osteolysis. IMPRESSION: No acute osseous abnormality seen on either side.
== END | disposition home or self-care (01) ==
LOC: RADXRMAIN 14:02
PROVIDERS: ATTEND Nurse Practitioner Family
DX: M54.10 Radiculopathy, site unspecified (principal); M25.532 Pain in left wrist; M25.531 Pain in right wrist; R60.0 Localized edema

== ENCOUNTER → 2024-06-01 | Outpatient (CLI) | payer OTHER ==
--- NOTE | 2024-06-01 08:38 | MM ---
Reason for Exam: Clinical finding. Patient History: Menarche at age 11. First Full-Term at age 13. Hysterectomy at age 32. Hormonal Contraceptives, starting at age 15 for 7 years. Maternal grandmother had breast cancer at or over age 50. Maternal aunt had breast cancer at or over age 50. Maternal aunt had breast cancer at or over age 50. Risk Values: Marzena 5 year model risk: 0.3%. NCI Lifetime model risk: 6.7%. Tissue Density: The breasts are heterogeneously dense, which may obscure small masses. Findings: Analyzed By CAD. No evidence for distinct mass or distortion. No suspicious microcalcifications. Correlate clinically with regards to resolved palpable abnormality. Overall Assessment: Benign, BI-RAD 2 Management: Screening Mammogram of both breasts in 1 year. . Results were given to the patient verbally at the time of exam. Patient should continue monthly self-breast exams. A clinical breast exam by your physician is recommended on an annual basis. This exam should not preclude additional follow-up of suspicious palpable abnormalities. Note on Marzena scores and lifetime risk: 1. A Marzena score greater than 3% is considered moderate risk. If this is the case, consider specialist referral to assess eligibility for a risk reducing agent. 2. If overall lifetime risk for the development of breast cancer is 20% or higher, the patient may qualify for future screening with alternating mammogram and breast MRI. Electronically signed and approved by: Smith Desai M.D. Radiologis
== END | disposition home or self-care (01) ==
LOC: RADMAMWWP 08:02
PROVIDERS: ATTEND Family Medicine
DX: N63.0 Unspecified lump in unspecified breast (principal); R92.333 Mammographic heterogeneous density, bilateral breasts; Z80.3 Family history of malignant neoplasm of breast
CPT/HCPCS: 77066; G0279; 77062